=== PATIENT | female | born 1970 | race Two or more races ===

== ENCOUNTER 2018-01-09 08:30 | Outpatient (CLI) | payer OTHER ==
[~2018-01-09 08:30] MED LIST: SYNTHROID150 MCG
== END 2018-01-09 08:48 | disposition home or self-care (01) ==
LOC: LAB 08:30
DX: D64.9 Anemia, unspecified (principal); E03.9 Hypothyroidism, unspecified; E78.00 Pure hypercholesterolemia, unspecified; R73.9 Hyperglycemia, unspecified; F43.0 Acute stress reaction

== ENCOUNTER 2018-01-29 13:52 | Outpatient (CLI) | payer OTHER | END 2018-01-29 14:10 | disposition home or self-care (01) | LOC: NUCLEAR 13:52 | DX: Z13.820 Encounter for screening for osteoporosis (principal) ==

== ENCOUNTER 2018-06-15 10:45 | Outpatient (CLI) | payer OTHER | END 2018-06-15 10:50 | disposition home or self-care (01) | LOC: LAB 10:45 | DX: E78.4 Other hyperlipidemia (principal); N91.0 Primary amenorrhea; N95.1 Menopausal and female climacteric states; E23.6 Other disorders of pituitary gland; R19.09 Other intra-abdominal and pelvic swelling, mass and lump; N39.0 Urinary tract infection, site not specified; E55.9 Vitamin D deficiency, unspecified; N73.8 Other specified female pelvic inflammatory diseases; A60.04 Herpesviral vulvovaginitis ==

== ENCOUNTER 2018-07-05 09:19 | Outpatient (CLI) | payer OTHER | END 2018-07-05 12:33 | disposition home or self-care (01) | LOC: MAMO-SONO 09:19 | DX: Z12.31 Encounter for screening mammogram for malignant neoplasm of breast (principal); N60.11 Diffuse cystic mastopathy of right breast; N64.4 Mastodynia ==

== ENCOUNTER → 2018-08-28 | Emergency (ER) | payer OTHER ==
[~2018-08-28] VITALS: Ht 162.6 cm; Wt 89.4 kg
[~2018-08-28] MED LIST changes: +SYNTHROID125 MCG; +TUSSI PRES-B L120 M1 PO; +ZITHROMAX200 MG PO
== END | disposition home or self-care (01) ==
LOC: ER 08:43
DX: B34.9 Viral infection, unspecified (principal)

== ENCOUNTER 2018-10-08 19:32 | Emergency (ER) | payer OTHER ==
[~2018-10-08] VITALS: Ht 162.6 cm; Wt 91.2 kg
== END 2018-10-08 22:34 | disposition home or self-care (01) ==
LOC: ER 19:32
DX: G43.809 Other migraine, not intractable, without status migrainosus (principal)

== ENCOUNTER → 2018-11-06 | Emergency (ER) | payer OTHER ==
[~2018-11-06] VITALS: Ht 162.6 cm; Wt 92.5 kg
== END | disposition home or self-care (01) ==
LOC: ER 14:02
DX: J01.80 Other acute sinusitis (principal); M54.2 Cervicalgia

== ENCOUNTER 2019-03-30 18:59 | Emergency (ER) | payer OTHER ==
[~2019-03-30] VITALS: Ht 162.6 cm; Wt 92.5 kg
== END 2019-03-30 20:24 | disposition home or self-care (01) ==
LOC: ER 18:59
DX: G43.909 Migraine, unspecified, not intractable, without status migrainosus (principal)

== ENCOUNTER 2019-05-21 00:11 | Emergency (ER) | payer OTHER ==
[~2019-05-21] VITALS: Ht 162.6 cm; Wt 98.0 kg
[2019-05-21] MEDS ORDERED: KETO10TA2 PO (04:13)
[2019-05-21] MEDS ORDERED: MAXALT MLT5 MG PO (04:13)
== END 2019-05-21 04:28 | disposition home or self-care (01) ==
LOC: ER 00:11
DX: G43.919 Migraine, unspecified, intractable, without status migrainosus (principal); R51 Headache

== ENCOUNTER 2019-08-26 08:38 | Emergency (ER) | payer OTHER ==
[~2019-08-26] VITALS: Ht 157.5 cm; Wt 92.5 kg
[~2019-08-26 08:38] MED LIST changes: +KETO10TA2 PO; +MAXALT MLT5 MG PO
== END 2019-08-26 12:37 | disposition home or self-care (01) ==
LOC: ER 08:38
DX: B34.9 Viral infection, unspecified (principal)

== ENCOUNTER 2020-05-06 08:58 | Outpatient (CLI) | payer OTHER | END 2020-05-06 09:03 | disposition home or self-care (01) | LOC: RAD 08:58 → MAMO-SONO 09:15 | PROVIDERS: ATTEND Obstetrics & Gynecology | DX: Z12.31 Encounter for screening mammogram for malignant neoplasm of breast (principal); N60.11 Diffuse cystic mastopathy of right breast; N60.12 Diffuse cystic mastopathy of left breast; R06.02 Shortness of breath; M94.0 Chondrocostal junction syndrome [Tietze]; Z12.2 Encounter for screening for malignant neoplasm of respiratory organs ==

== ENCOUNTER 2020-05-25 07:33 | Outpatient (CLI) | payer OTHER | END 2020-05-25 07:43 | disposition home or self-care (01) | LOC: SONOGRAMA 07:33 | PROVIDERS: ATTEND Obstetrics & Gynecology | DX: E04.1 Nontoxic single thyroid nodule (principal) ==

== ENCOUNTER 2020-05-26 10:32 | Outpatient (CLI) | payer OTHER ==
[~2020-05-26] VITALS: Ht 162.6 cm; Wt 92.5 kg
== END 2020-05-26 11:13 | disposition home or self-care (01) ==
LOC: OFIC 805 10:32
PROVIDERS: ATTEND Otolaryngology
DX: H90.3 Sensorineural hearing loss, bilateral (principal); H61.23 Impacted cerumen, bilateral

== ENCOUNTER 2020-12-10 13:25 | Outpatient (CLI) | payer OTHER | END 2020-12-10 13:41 | disposition home or self-care (01) | LOC: SONOGRAMA 13:25 | PROVIDERS: ATTEND Internal Medicine Endocrinology, Diabetes & Metabolism | DX: E04.2 Nontoxic multinodular goiter (principal) ==

== ENCOUNTER 2022-06-18 20:24 | Emergency (ER) | payer OTHER ==
[~2022-06-18] VITALS: Ht 160 cm; Wt 102.1 kg
== END 2022-06-18 22:57 | disposition home or self-care (01) ==
LOC: ER 20:24
DX: R51.9 Headache, unspecified (principal); M50.321 Other cervical disc degeneration at C4-C5 level; Z20.822 Contact with and (suspected) exposure to COVID-19